=== PATIENT | female | born 1970 | race Caucasian/White ===

== ENCOUNTER 2017-02-04 12:03 | Emergency (ER) | payer SELFPAY ==
[2017-02-04 12:18] VITALS: BP 108/66; PULSE 103; RESP 16; TEMP 98; O2SAT 100
--- NOTE | 2017-02-04 12:29 | ED PDOC ---
HPI: Skin/Bite Injury Time Seen by Provider: 02/04/17 12:12 Chief Complaint (Nursing): Abnormal Skin Integrity Chief Complaint (Provider): Abnormal Skin Integrity History Per: Patient History/Exam Limitations: no limitations Onset/Duration Of Symptoms: Days (x1) Current Symptoms Are (Timing): Gone Now Additional Complaint(s): June Jordan is a 46 year old female, who presents to the emergency department with a complaint of diffuse intermittent skin rash associated with resolved swollen lips ongoing for 1 day. Denied use of new soap or food. Patient stated she took Benadryl at 0100 earlier today for alleviation. PMD: none provided Past Medical History Reviewed: Historical Data, Nursing Documentation, Vital Signs Vital Signs: Last Vital Signs Temp 98 F 02/04/17 12:08 Pulse 103 H 02/04/17 12:08 Resp 16 02/04/17 12:08 BP 108/66 02/04/17 12:08 Pulse Ox 100 02/04/17 12:29 - Medical History PMH: No Chronic Diseases - Surgical History Surgical History: Appendectomy, Cholecystectomy, - Family History Family History: States: Unknown Family Hx - Social History Current smoker - smoking cessation education provided: No Alcohol: None Drugs: Denies - Home Medications Home Medications: Ambulatory Orders Medication Instructions Recorded predniSONE [predniSONE Tab] 20 mg PO DAILY #12 tab 02/04/17 - Allergies Allergies/Adverse Reactions: Allergies Allergy/AdvReac Type Severity Reaction Status Date / Time No Known Allergies Allergy Verified 05/31/15 17:33 Review of Systems ROS Statement: Except As Marked, All Systems Reviewed And Found Negative ENT: Positive for: Mouth Swelling (resolved), Other Skin: Positive for: Rash Physical Exam - Reviewed Nursing Documentation Reviewed: Yes Vital Signs Reviewed: Yes - Physical Exam Appears: Positive for: Well, Non-toxic, No Acute Distress Head Exam: Positive for: ATRAUMATIC, NORMAL INSPECTION, NORMOCEPHALIC Skin: Positive for: Normal Color. Negative for: Rash Cardiovascular/Chest: Positive for: Regular Rate, Rhythm, Chest Non Tender Respiratory: Positive for: Normal Breath Sounds. Negative for: Decreased Breath Sounds, Wheezing, Respiratory Distress Neurologic/Psych: Positive for: Alert (x3), Oriented - ECG O2 Sat by Pulse Oximetry: 100 (RA) Pulse Ox Interpretation: Normal Medical Decision Making Medical Decision Making: Initial Impression: Skin rash Initial Plan: * Recommended food log * Allergy testing at clinic --Upon provider evaluation, patient is medically stable and requires no further treatment in the ED at this time. Patient will be discharged home with Rx for Prednisone 20mg. Counseling was provided and all questions were answered regarding diagnosis and need for follow up with clinic. There is agreement to discharge plan. Return if symptoms persist or worsen. Clinical Impression: Allergic reaction Scribe Attestation: Documented by Jamilah Lindsay, acting as a scribe for Audrey Damon MD. Provider Scribe Attestation: All medical record entries made by the Scribe were at my direction and personally dictated by me. I have reviewed the chart and agree that the record accurately reflects my personal performance of the history, physical exam, medical decision making, and the department course for this patient. I have also personally directed, reviewed, and agree with the discharge instructions and disposition. Disposition - Clinical Impression Clinical Impression: Allergic reaction - Patient ED Disposition Is Patient to be Admitted: No Counseled Patient/Family Regarding: Diagnosis - Disposition Disposition: Routine/Home Disposition Time: 14:25 Condition: STABLE Prescriptions: predniSONE [predniSONE Tab] 20 mg PO DAILY #12 tab Instructions: General Allergic Reaction (ED) Forms: [email or web address] ([place] Citizen)
== END 2017-02-04 12:27 | disposition home or self-care (01) ==
LOC: H.ER 12:03
DX: T78.49XA Other allergy, initial encounter (principal); X58.XXXA Exposure to other specified factors, initial encounter

== ENCOUNTER 2017-10-27 12:15 | Emergency (ER) | payer BC, SELFPAY ==
[2017-10-27 12:25] VITALS: TEMP 97.6; O2SAT 100
--- NOTE | 2017-10-27 12:45 | ED PDOC ---
HPI: Neurologic - General Time Seen by Provider: 10/27/17 12:31 Chief Complaint (Nursing): Weakness/Neurological Deficit Source: patient - History of Present Illness Timing/Duration: 24 hours Severity: mild Associated Symptoms: paresthesia Allergies/Adverse Reactions: Allergies No Known Allergies Allergy (Verified 05/31/15 17:33) Home Medications: Ambulatory Orders predniSONE [predniSONE Tab] 20 mg PO DAILY #12 tab 02/04/17 Dextran 70/Hypromellose [Artificial Tears] 1 each OP Q2 #1 droperette 10/27/17 Valacyclovir HCl [Valtrex] 1 gm PO Q8 #30 tablet 10/27/17 predniSONE [predniSONE Tab] 10 mg PO TID #15 tab 10/27/17 Additional Complaint(s): Left sided facial pain assoc with numbness and increased tearing lef eye since yesterday. denies headache, blurry vision or peripheral weakness or numbness. NIHSS Stroke Scale - How Severe is the Stroke Level of Consciousness: 0=Alert LOC to Questions: 0=Both comments correct LOC to commands: 0=Obeys both correctly Best Gaze: 0=Normal Visual: 0=No visual loss Facial: 1=Minor asymmetry Motor Arm - Left: 0=No drift Motor Arm - Right: 0=No drift Motor Leg - Left: 0=No drift Motor Leg - Right: 0=No drift Limb Ataxia: 0=Absent Sensory: 0=Normal Best Language: 0=No aphasia Dysarthia: 0=Normal articulation Extinction & Inattention (Neglect): 0=Normal, no object Score: 1 Past Medical History Vital Signs: Last Vital Signs Temp 97.6 F 10/27/17 12:18 Pulse 86 10/27/17 12:18 Resp 20 10/27/17 12:20 BP 125/74 10/27/17 12:18 Pulse Ox 100 10/27/17 12:18 - Medical History PMH: No Chronic Diseases - Surgical History Surgical History: Appendectomy, Cholecystectomy, - Family History Family History: States: Unknown Family Hx - Home Medications Home Medications: Ambulatory Orders Medication Instructions Recorded predniSONE [predniSONE Tab] 20 mg PO DAILY #12 tab 02/04/17 Dextran 70/Hypromellose 1 each OP Q2 #1 droperette 10/27/17 [Artificial Tears] Valacyclovir HCl [Valtrex] 1 gm PO Q8 #30 tablet 10/27/17 predniSONE [predniSONE Tab] 10 mg PO TID #15 tab 10/27/17 - Allergies Allergies/Adverse Reactions: Allergies Allergy/AdvReac Type Severity Reaction Status Date / Time No Known Allergies Allergy Verified 05/31/15 17:33 Review of Systems ROS Statement: Except As Marked, All Systems Reviewed And Found Negative Neurological: Positive for: Other (Left facial pain and numbness) Physical Exam - Reviewed Nursing Documentation Reviewed: Yes Vital Signs Reviewed: Yes - Physical Exam Appears: Positive for: Non-toxic, No Acute Distress Head Exam: Positive for: ATRAUMATIC, NORMAL INSPECTION, NORMOCEPHALIC Skin: Positive for: Normal Color, Warm, DRY Eye Exam: Positive for: EOMI, Normal appearance, PERRL ENT: Positive for: Normal ENT Inspection Neck: Positive for: Normal, Painless ROM Cardiovascular/Chest: Positive for: Regular Rate, Rhythm Respiratory: Positive for: CNT, Normal Breath Sounds Gastrointestinal/Abdominal: Positive for: Normal Exam, Soft Back: Positive for: Normal Inspection Extremity: Positive for: Normal ROM Neurologic/Psych: Positive for: Alert, Oriented, Facial Droop (Mild asymmetry left side). Negative for: Motor/Sensory Deficits - ECG O2 Sat by Pulse Oximetry: 100 Medical Decision Making Medical Decision Making: Pt declines CT head. Aware of riskd including CVA Disposition - Clinical Impression Clinical Impression: Terrell's palsy - Patient ED Disposition Is Patient to be Admitted: No Counseled Patient/Family Regarding: Diagnosis, Need For Followup, Rx Given - Disposition Referrals: [facility] [Outside] Carlos Sim MD [Medical Doctor] - Disposition: Routine/Home Disposition Time: 15:03 Condition: FAIR Prescriptions: Dextran 70/Hypromellose [Artificial Tears] 1 each OP Q2 #1 droperette predniSONE [predniSONE Tab] 10 mg PO TID #15 tab Valacyclovir HCl [Valtrex] 1 gm PO Q8 #30 tablet Instructions: Terrell's Palsy Forms: [employer] ([place])
[2017-10-27 15:21] VITALS: BP 120/70
[2017-10-27 15:28] VITALS: PULSE 80; RESP 14
== END 2017-10-27 15:15 | disposition home or self-care (01) ==
LOC: H.ER 12:15
DX: G51.0 Bell's palsy (principal)